=== PATIENT | male | born 1970 | race Caucasian/White ===

== ENCOUNTER 2023-06-13 08:25 | Outpatient (CLI) | payer BC | END 2023-06-13 08:26 | disposition home or self-care (01) | LOC: CSHCT 08:25 | PROVIDERS: ATTEND Orthopaedic Surgery | DX: Z47.1 Aftercare following joint replacement surgery (principal); Z96.611 Presence of right artificial shoulder joint; T84.098A Other mechanical complication of other internal joint prosthesis, initial encounter; M89.511 Osteolysis, right shoulder ==